=== PATIENT | male | born 1985 | race Caucasian/White ===

== ENCOUNTER 2022-06-19 12:49 | Emergency (ER) | payer BC ==
[2022-06-19] MEDS ORDERED: diphenhydrAMINE 25 MG CAP ONE (12:55)
[2022-06-19] MEDS ORDERED: Famotidine 20 MG TAB ONE (12:56)
[2022-06-19] MEDS ORDERED: predniSONE 20 MG TAB ONE (13:11)
[2022-06-19] MEDS ORDERED: EPINEPHrine 1 MG/ML AMP ONE (13:12)
[2022-06-19] MEDS ORDERED: Ondansetron ODT 4 MG TAB ONE (13:15)
== END 2022-06-19 14:56 | disposition home or self-care (01) ==
LOC: CSHERS 12:49
DX: T78.2XXA Anaphylactic shock, unspecified, initial encounter (principal); Z91.010 Allergy to peanuts
CPT/HCPCS: 96372; 99284; J0171; J7512; Q0162